=== PATIENT | male | born 1955 ===

== ENCOUNTER 2024-10-01 11:15 | Inpatient (IN) | payer OTHER ==
[~2024-10-01] VITALS: Ht 274.3 cm; Wt 72.6 kg
[2024-10-01] MEDS ORDERED: PROSCAR5 MG PO (14:49)
[2024-10-01] MEDS ORDERED: EDARBYCLOR 40-1 EAC1 PO (14:49)
[2024-10-01] MEDS ORDERED: FOLIC ACID0.8 M1 (14:50)
[2024-10-01] MEDS ORDERED: JARDIANCE10 MG PO (14:50)
[2024-10-01] MEDS ORDERED: EZALLOR SPRINKL20 MG PO (14:51)
[2024-10-01] MEDS ORDERED: ATIVAN1 M1 PO (14:51)
[2024-10-01] MEDS ORDERED: NIFEDIPINE20 MG (14:51)
[2024-10-01] MEDS ORDERED: PAXIL20 MG PO (14:52)
[2024-10-01] MEDS ORDERED: CARVEDILOL12.5 MG (14:52)
[2024-10-01] MEDS ORDERED: HYDRALAZINE HC100 MG PO (14:53)
[2024-10-08] MEDS ORDERED: METHYLPREDNISOLONE SOD SUCC 125 MG VIAL ONE (15:13)
[2024-10-08] MEDS ORDERED: CEFAZOLIN SODIUM 1,000 MG VIAL ONE (15:13)
[2024-10-08] MEDS ORDERED: VANCOMYCIN HCL 1,000 MG VIAL ONE (15:13)
[2024-10-08] MEDS ORDERED: METHYLPREDNISOLONE ACETATE 80 MG/ML VIAL ONE (15:16)
[2024-10-08] MEDS ORDERED: PERCOCET 5-3251 EACH PO (15:35)
[2024-10-08] MEDS ORDERED: AMOX-CLAV 875-1 EACH PO (15:36)
[2024-10-08] MEDS ORDERED: MEDROLPACK PO (15:36)
[2024-10-08] MEDS ORDERED: COLACE100 MG PO (15:36)
[2024-10-08] MEDS ORDERED: GABAPENTIN100 M2 PO (15:36)
[2024-10-08] MEDS ORDERED: NEURONTIN800 MG PO (15:37)
[2024-10-08] MEDS ORDERED: ENALAPRILAT DIHYDRATE 1.25 MG/ML VIAL IV PRN (16:15)
[2024-10-08] MEDS ORDERED: 0.9 % SODIUM CHLORIDE 1,000 ML IV SCH (16:15)
[2024-10-08] MEDS ORDERED: PROMETHAZINE HCL 50 MG/ML AMPUL IM PRN (16:15)
[2024-10-08] MEDS ORDERED: IOVERSOL 320 MG/ML - 50 ML VIAL IV ONE (16:41)
[2024-10-08] MEDS ORDERED: CEFAZOLIN SODIUM 1,000 MG in 0.9 % SODIUM CHLORIDE 50 ML IV SCH (17:00)
[2024-10-08] MEDS ORDERED: METHYLPREDNISOLONE SOD SUCC 125 MG VIAL IV SCH (17:00)
[2024-10-08] MEDS ORDERED: MORPHINE SULFATE 4 MG/ML VIAL IV SCH (17:00)
[2024-10-08] MEDS ORDERED: MORPHINE SULFATE 4 MG,MORPHINE SULFATE 2 MG IV SCH (17:00)
[2024-10-08] MEDS ORDERED: CEFAZOLIN SODIUM 1,000 MG VIAL IV ONE (17:30)
[2024-10-08] MEDS ORDERED: VANCOMYCIN HCL 1,000 MG VIAL IV ONE (17:30)
[2024-10-08] MEDS ORDERED: IOVERSOL IV ONE (17:30)
[2024-10-08] MEDS ORDERED: VANCOMYCIN HCL 1,000 MG VIAL SPEPROC ONE (17:30)
[2024-10-08] MEDS ORDERED: METHYLPREDNISOLONE SOD SUCC 125 MG VIAL IV ONE ×2 (17:30)
[2024-10-08] MEDS ORDERED: METHYLPREDNISOLONE ACETATE 80 MG/ML VIAL IM ONE ×2 (17:30)
[2024-10-08] MEDS ORDERED: VANCOMYCIN HCL 1,000 MG VIAL IR ONE (17:30)
[2024-10-08] MEDS ORDERED: MORPHINE SULFATE 4 MG/ML VIAL IV ONE (19:15)
[2024-10-08] MEDS ORDERED: GABAPENTIN 800 MG TABLET PO SCH (21:00)
[2024-10-08] MEDS ORDERED: VANCOMYCIN HCL 1,000 MG VIAL IV SCH (21:00)
[2024-10-08] MEDS ORDERED: PAROXETINE HCL 20 MG TABLET PO SCH (21:00)
[2024-10-08] MEDS ORDERED: NIFEDIPINE 60 MG TAB.SA.OSM PO SCH (21:00)
[2024-10-08 22:20] VITALS: O2SAT 94
[2024-10-09] VITALS (8 sets, daily range): BP systolic 130–142; BP diastolic 71–87; O2SAT 93–100
[2024-10-09] MEDS ORDERED: SODIUM CHLORIDE 0.45 % 1,000 ML IV SCH
[2024-10-09] MEDS ORDERED: OxyCODONE HCL/APAP UD (PERCOCET) PO PRN (06:01)
[2024-10-09] MEDS ORDERED: VANCOMYCIN HCL 1,000 MG VIAL ONE ×2 (06:10→14:50)
[2024-10-09] MEDS ORDERED: CEFAZOLIN SODIUM 1,000 MG VIAL ONE (06:10)
[2024-10-09 06:45] LABS: HEMATOCRIT 44.8 % (39.0-48.0); HEMOGLOBIN 15.8 g/dL (13-16.00); MEAN CELL VOLUME 90.7 fL (80.0-100.00); MEAN CORPUSCULAR HEMOGLOBIN 31.9 pg (27.00-32.0); MEAN CORPUSCULAR HGB CONC 35.2 g/dl (32.0-36.0); PLATELET COUNT 222 K/uL (150-450); RED BLOOD COUNT 4.94 M/uL (4.00-6.00); RED CELL DISTRIBUTION WIDTH 13.9 % (11.5-14.5)
[2024-10-09 07:04] LABS: CALCIUM 8.9 mg/dL (8.5-10.1); CREATININE SERUM 0.97 mg/dL (0.70-1.30); GFR 76.51; POTASSIUM 3.31 mEq/L (3.5-5.1)
[2024-10-09] MEDS ORDERED: CARVEDILOL 12.5 MG TABLET PO SCH (09:00)
[2024-10-09] MEDS ORDERED: TAMSULOSIN HCL 0.4 MG CAP PO SCH (09:00)
[2024-10-09] MEDS ORDERED: DOCUSATE SODIUM 100MG CAP PO SCH (09:00)
[2024-10-09] MEDS ORDERED: FAMOtidine 20 MG TABLET PO SCH (09:00)
[2024-10-09] MEDS ORDERED: hydrALAZINE HCL 10 MG TABLET PO SCH (09:00)
[2024-10-09] MEDS ORDERED: FINASTERIDE 5 MG TABLET PO SCH (09:00)
[2024-10-09] MEDS ORDERED: INSULIN LISPRO 1,000 UNIT/10 ML UNITS SUBCUTANEO PRN (12:30)
[2024-10-09] MEDS ORDERED: DEXTROSE 50 % IN WATER 0.5 G/ML DISP.SYRIN IV PRN (12:30)
[2024-10-10 00:23] VITALS: BP 138/75; O2SAT 97
[2024-10-10 05:22] VITALS: O2SAT 94
[2024-10-10 08:00] VITALS: BP 112/64; O2SAT 96
[2024-10-10 09:55] VITALS: O2SAT 94
== END 2024-10-10 13:32 | disposition home or self-care (01) | DRG 428 ==
LOC: SURH 10-08 11:15 → SURG 10-08 19:13
PROVIDERS: ADMIT Orthopaedic Surgery Orthopaedic Surgery of the Spine; ATTEND Orthopaedic Surgery Orthopaedic Surgery of the Spine
PROC: 0SG0071 Fusion of Lumbar Vertebral Joint with Autologous Tissue Substitute, Posterior Approach, Posterior Column, Open Approach (ICD-10-PCS; 2024-10-08)
PROC: XRGD0R7 Fusion of Lumbosacral Joint using Custom-Made Anatomically Designed Interbody Fusion Device, Open Approach, New Technology Group 7 (ICD-10-PCS; 2024-10-08)
PROC: 0SG3071 Fusion of Lumbosacral Joint with Autologous Tissue Substitute, Posterior Approach, Posterior Column, Open Approach (ICD-10-PCS; 2024-10-08)
PROC: 0ST20ZZ Resection of Lumbar Vertebral Disc, Open Approach (ICD-10-PCS; 2024-10-08)
PROC: 0ST40ZZ Resection of Lumbosacral Disc, Open Approach (ICD-10-PCS; 2024-10-08)
PROC: 0QB30ZZ Excision of Left Pelvic Bone, Open Approach (ICD-10-PCS; 2024-10-08)
PROC: 07DR0ZZ Extraction of Iliac Bone Marrow, Open Approach (ICD-10-PCS; 2024-10-08)
PROC: 4A1104G Monitoring of Peripheral Nervous Electrical Activity, Intraoperative, Open Approach (ICD-10-PCS; 2024-10-08)
PROC: XRGB0R7 Fusion of Lumbar Vertebral Joint using Custom-Made Anatomically Designed Interbody Fusion Device, Open Approach, New Technology Group 7 (ICD-10-PCS; principal; 2024-10-08 16:00)
DX: M48.062 Spinal stenosis, lumbar region with neurogenic claudication (principal); M48.07 Spinal stenosis, lumbosacral region; M54.17 Radiculopathy, lumbosacral region; M43.16 Spondylolisthesis, lumbar region; I10 Essential (primary) hypertension; N40.0 Benign prostatic hyperplasia without lower urinary tract symptoms; E11.9 Type 2 diabetes mellitus without complications; Z79.4 Long term (current) use of insulin

== ENCOUNTER 2024-10-08 14:04 | Outpatient (CLI) | payer OTHER ==
[~2024-10-08 14:04] MED LIST: ATIVAN1 M1 PO; CARVEDILOL12.5 MG; EDARBYCLOR 40-1 EAC1 PO; EZALLOR SPRINKL20 MG PO; FOLIC ACID0.8 M1; HYDRALAZINE HC100 MG PO; JARDIANCE10 MG PO; NIFEDIPINE20 MG; PAXIL20 MG PO; PROSCAR5 MG PO
[2024-10-08] MEDS ORDERED: PERCOCET 5-3251 EACH PO (15:35)
[2024-10-08] MEDS ORDERED: COLACE100 MG PO (15:36)
[2024-10-08] MEDS ORDERED: GABAPENTIN100 M2 PO (15:36)
[2024-10-08] MEDS ORDERED: MEDROLPACK PO (15:36)
[2024-10-08] MEDS ORDERED: AMOX-CLAV 875-1 EACH PO (15:36)
[2024-10-08] MEDS ORDERED: NEURONTIN800 MG PO (15:37)
== END 2024-10-08 14:06 | disposition home or self-care (01) ==
LOC: RAD 14:04
PROVIDERS: ATTEND Orthopaedic Surgery Orthopaedic Surgery of the Spine
DX: M51.369 Other intervertebral disc degeneration, lumbar region without mention of lumbar back pain or lower extremity pain (principal)